=== PATIENT | male | born 1960 | race Caucasian/White ===

== ENCOUNTER → 2016-06-15 | Outpatient (REF) ==
[~2016-06-15] MED LIST: ALAVERT10 M1 PO; COUMADIN 6MG6 MG/TAB PO; HUMALOG100 U/ML SC; LANTUS100 U/ML SC; LASIX 20MG TABL20 MG PO; NASONEX SPRAY17 GM NS; TIROSINT150 MCG PO; VALTREX1 GM PO
[2016-06-15 16:40] LABS: PSA-TOTAL 2.27 ng/mL (0-4)
== END ==
LOC: ZLAB.WCH 14:52
PROVIDERS: Internal Medicine
DX: Z01.89 Encounter for other specified special examinations (principal)
CPT/HCPCS: G0103

== ENCOUNTER → 2017-03-14 | Outpatient (REF) | LOC: ZLAB.WCH 18:31 | DX: Z01.89 Encounter for other specified special examinations (principal) ==

== ENCOUNTER → 2017-06-03 | Outpatient (REF) | LOC: ZLAB.WCH 16:49 | DX: Z01.89 Encounter for other specified special examinations (principal) ==

== ENCOUNTER → 2017-07-04 | Outpatient (REF) ==
[2017-07-04 16:47] LABS: PSA-TOTAL 2.41 ng/mL (0-4)
[2017-07-04 16:53] LABS: THYROID STIMULATING HORMONE 1.8 uIU/mL (0.465-4.680)
== END ==
LOC: ZLAB.WCH 15:55
PROVIDERS: Internal Medicine
DX: Z01.89 Encounter for other specified special examinations (principal)
CPT/HCPCS: G0103

== ENCOUNTER → 2017-09-28 | Outpatient (CLI) | payer MEDICARE, BC | LOC: COL.VAS 08:18 | DX: Z51.81 Encounter for therapeutic drug level monitoring (principal); M79.89 Other specified soft tissue disorders; M79.661 Pain in right lower leg; Z86.718 Personal history of other venous thrombosis and embolism ==

== ENCOUNTER → 2018-03-30 | Outpatient (REF) | LOC: ZLAB.WCH 15:55 | DX: Z01.89 Encounter for other specified special examinations (principal) ==

== ENCOUNTER 2021-01-08 19:05 | Emergency (ER) | payer MEDICARE, BC ==
[~2021-01-08] VITALS: Ht 182.9 cm; Wt 122.7 kg
[2021-01-08 19:22] VITALS: TEMP 98.5
[2021-01-08 20:25] LABS: BASO # 0.1 K/mm3 (0.0-0.2); BASO % 0.7 % (0.0-2.0); GRAN # 7.5 K/mm3 (1.4-6.5); GRAN % 78.3 % (42.2-75.2); HEMATOCRIT 38.3 % (42.0-52.0); HEMOGLOBIN 12.4 g/dl (13.5-18.0); LYMPH # 1.1 K/mm3 (1.2-3.4); LYMPH % 11.4 % (20.0-51.0); MEAN CELL VOLUME 81 fl (80.0-100.0); MEAN CORPUSCULAR HEMOGLOBIN 26 pg (27.0-31.0); MEAN CORPUSCULAR HGB CONC 32 g/dl (33.0-37.0); MEAN PLATELET VOLUME 8.7 fl (7.4-10.4); MONO # 0.9 K/mm3 (0.1-0.6); PLATELET COUNT 244 K/mm3 (130-400); RED BLOOD COUNT 4.71 M/mm3 (4.20-5.60); REDCELL DISTRIBUTION WIDTH-CV 15.6 % (11.5-14.5)
[2021-01-08 20:44] LABS: ALBUMIN 3.3 gm/dL (3.4-4.8); BILIRUBIN,TOTAL 0.3 mg/dL (0.2-1.2); C-REACTIVE PROTEIN 1.77 mg/dL (0.00-0.50); CALCIUM 8.7 mg/dL (8.4-10.2); CREATININE, serum 1.93 mg/dL (0.72-1.25); POTASSIUM 4.8 mmol/L (3.5-4.5); TOTAL PROTEIN 7.1 gm/dL (6.2-8.1)
[2021-01-08 21:06] LABS: ERYTHROCYTE SEDIMENTATION RATE 43 mm/hr (0-30)
[2021-01-08 21:47] VITALS: BP 148/69; PULSE 68
== END 2021-01-08 21:47 | disposition home or self-care (01) ==
LOC: COL.ER 19:05
PROVIDERS: Personal Emergency Response Attendant
DX: L08.89 Other specified local infections of the skin and subcutaneous tissue (principal); E11.9 Type 2 diabetes mellitus without complications; Z79.4 Long term (current) use of insulin; Z85.830 Personal history of malignant neoplasm of bone
CPT/HCPCS: J2270